=== PATIENT | male | born 1990 | race Caucasian/White ===

== ENCOUNTER 2022-04-28 07:03 | Day surgery (SDC) | payer MEDICAID ==
[~2022-04-28] VITALS: Ht 180.3 cm; Wt 109.2 kg
[2022-04-28 07:22] VITALS: BP 138/83
[2022-04-28] MEDS ORDERED: NO HOME MEDS (07:25)
[2022-04-28] MEDS ORDERED: LIDOcaine 1% 30ml preserv. free vial SQ STA (07:44)
[2022-04-28 09:19] VITALS: BP 119/77
== END 2022-04-28 09:30 | disposition home or self-care (01) ==
LOC: SSTAY O 07:03
PROVIDERS: ATTEND Radiology Vascular & Interventional Radiology
DX: R22.32 Localized swelling, mass and lump, left upper limb (principal); D17.22 Benign lipomatous neoplasm of skin and subcutaneous tissue of left arm
CPT/HCPCS: 20206; 76942

== ENCOUNTER 2024-12-15 09:45 | Outpatient (CLI) | payer OTHER ==
[~2024-12-15 09:45] MED LIST: NO HOME MEDS
--- NOTE | 2024-12-15 13:02 | RADIOLOGY REPORT ---
CLINICAL INDICATION: PAIN IN RIGHT LOWER LEG TECHNIQUE: Noncontrast CT of the right tibia/fibula was performed. Sagittal and coronal reformatted i mages are provided. COMPARISON: None CT Dose: CTDI volume is 16.8 mGy. Dose-length product is 784.8 mGy*cm FINDINGS: No fracture or dislocation. Joint spaces are maintained. No abnormal alignment. No signific ant soft tissue swelling. The fat planes between the muscles are maintained. IMPRESSION: 1. No fracture or dislocation in the right lower extremity. No soft tissue injury. If there is conc leyda for soft tissue injury, MRI may be helpful for further evaluation. All CT scans at this medical facility are performed using dose modulation techniques as appropriate t o a performed exam including the following: Automated exposure control was utilized; adjustment of th e MA and/or KV according to patient size; and use of iterative reconstruction technique.
== END 2024-12-15 23:59 | disposition home or self-care (01) ==
LOC: RAD 09:45
PROVIDERS: ATTEND Student in an Organized Health Care Education/Training Program
DX: S86.811A Strain of other muscle(s) and tendon(s) at lower leg level, right leg, initial encounter (principal); M79.661 Pain in right lower leg; X58.XXXA Exposure to other specified factors, initial encounter; Y93.89 Activity, other specified; Y92.89 Other specified places as the place of occurrence of the external cause; Y99.8 Other external cause status
CPT/HCPCS: 73700